=== PATIENT | female | born 1955 | race Caucasian/White ===

== ENCOUNTER → 2019-01-13 13:58 | Emergency (ER) | payer OTHER ==
[~2019-01-13 13:58] MED LIST: Bupivacaine 0.5% PF 10 ML VIAL INJ ONE; Bupivacaine 0.5%* 50 ML VIAL INJ ONE; Lidocaine 1%* 5 ML VIAL INJ ONE; Lidocaine 2.5%/Prilocain 2.5%* 5 GM TUBE TOPICAL ONE; oxyCODONE/Acetamin 5/325 MG* TAB PO ONE
--- NOTE | 2019-01-13 17:14 | ED ---
Upper Extremity Pain - HPI Summary HPI Summary: Patient is a 64-year-old female who presents emergency department for a left wrist injury that occurred just prior to arrival. Patient states she was pulling down rope to close her garage when the rope broke and she fell backwards landing onto her left hand. Denies head injury or any other injuries. Symptoms are mild in severity. Patient denies past medical history. - History of Current Complaint Chief Complaint: EDExtremityUpper Stated Complaint: "I THINK I BROKE MY WRIST" PER PT Time Seen by Provider: 01/13/19 14:27 Hx Obtained From: Patient - Allergies/Home Medications Allergies/Adverse Reactions: Allergies Allergy/AdvReac Type Severity Reaction Status Date / Time aspirin Allergy Swelling Verified 01/13/19 14:25 Penicillins Allergy Swelling Verified 01/13/19 14:25 PMH/Surg Hx/FS Hx/Imm Hx Previously Healthy: Yes Endocrine/Hematology History: Denies: Hx Diabetes Cardiovascular History: Denies: Hx Hypertension, Hx Pacemaker/ICD History: Denies: Hx Renal Disease Sensory History: Denies: Hx Hearing Aid Psychiatric History: Denies: Hx Panic Disorder - Surgical History Surgery Procedure, Year, and Place: TONSILECTOMY - as a child ;. Lt [facility] - NEUROPATHY -1979 ; Infectious Disease History: No Infectious Disease History: Denies: Traveled Outside the [place] in Last 30 Days - Family History Known Family History: Positive: Other - aneurysm (grandmother) - Social History Occupation: Employed Full-time Lives: With Family Alcohol Use: Rare Substance Use Type: Reports: None Smoking Status (MU): Never Smoked Tobacco Review of Systems Positive: Other - left wrist injury Negative: Weakness, Paresthesia, Numbness All Other Systems Reviewed And Are Negative: Yes Physical Exam Triage Information Reviewed: Yes Vital Signs On Initial Exam: Initial Vitals Temp Pulse Resp BP Pulse Ox 98.4 F 75 18 148/96 100 01/13/19 14:13 01/13/19 14:13 01/13/19 14:13 01/13/19 14:13 01/13/19 14:13 Vital Signs Reviewed: Yes Appearance: Positive: Well-Appearing - Pt. sitting on bed in NAD. Skin: Positive: Warm, Dry Head/Face: Positive: Normal Head/Face Inspection Eyes: Positive: Normal, EOMI Neck: Positive: Supple Musculoskeletal: Positive: Other - Mild deformity to left wrist. Good radial pulse. No neurosensory deficits. Diffuse pain to distal forearm. No breaks in the skin. No proximal injuries Neurological: Positive: Normal, CN Intact II-III Psychiatric: Positive: Affect/Mood Appropriate Procedures - Procedure Summary Procedure Summary: Hematoma block performed by Dr. Newby with 5cc of bupivacaine and 5cc lidocaine. Left wrist fracture was reduced using traction-counter traction. Good pre and post reduction radial pulse. Good cap. refill. Sugar tong splint placed. Post reduction xray shows mild improvement of alignment. Pt. tolerated well. Diagnostics - Vital Signs Vital Signs Temp Pulse Resp BP Pulse Ox 01/13/19 16:31 71 18 129/70 97 01/13/19 15:20 20 01/13/19 14:39 22 01/13/19 14:13 98.4 F 75 18 148/96 100 - Laboratory Lab Statement: Any lab studies that have been ordered have been reviewed, and results considered in the medical decision making process. Course/Dx - Course Course Of Treatment: Patient presenting with eyesight left wrist injury. She is given a dose of Percocet. Xray per radiolgoy: REPORT AND IMPRESSION: #. Comminuted intra-articular fracture of the distal radius with approximate 1 cm dorsal. displacement and disproportionate dorsal impaction with resulting dorsal tilt of the. distal radial articular surface. The carpus remains aligned with the distal radioarticular. surface. Associated grossly nondisplaced ulnar styloid avulsion. Surrounding soft tissue. swelling. Case discussed with on-call orthopedics, Dr. Bartlett, who recommends reductoin and outpt. f.u. Hematoma block performed by Dr. Newby. Wrist was reduced as noted above with slight improvement with alignment. Wrist was splinted and placed in sling. Rx for percocet sent to pharm. [employer] reviewed. Pt. to ice and elevate. To call ortho. office tomorrow for a close f.u apt. To return if sxs change or worsen. Pt. understands and agrees with plan. - Diagnoses Differential Diagnosis/HQI/PQRI: Positive: Fracture (Closed), Strain, Sprain Provider Diagnoses: Wrist fracture Discharge - Sign-Out/Discharge Documenting (check all that apply): Patient Departure Patient Received Moderate/Deep Sedation with Procedure: No - Discharge Plan Condition: Improved Disposition: HOME Prescriptions: oxyCODONE/Acetamin 5/325 MG* [Percocet 5/325 TAB*] 1 tab PO Q6H PRN #12 tab MDD 4 PRN Reason: Pain Patient Education Materials: Wrist Fracture in Adults (ED) Referrals: Olivia Warner MD [Primary Care Provider] - Argenis Bartlett MD [Medical Doctor] - Additional Instructions: Call Dr. Bartlett's office tomorrow to schedule a close follow up appointment Keep splint in place Ice and elevate Pain medication as directed Return to ER if symptoms change or worsen - Billing Disposition and Condition Condition: IMPROVED Disposition: Home
[2019-01-13 18:29] VITALS: BP 134/83
== END | disposition home or self-care (01) ==
LOC: ED 13:58
DX: S52.92XA Unspecified fracture of left forearm, initial encounter for closed fracture (principal); W01.0XXA Fall on same level from slipping, tripping and stumbling without subsequent striking against object, initial encounter; Y92.015 Private garage of single-family (private) house as the place of occurrence of the external cause; Z88.0 Allergy status to penicillin
CPT/HCPCS: 25605; 96374; 96375; 99282; A9270-GY

== ENCOUNTER 2019-01-18 11:51 | Day surgery (SDC) | payer OTHER ==
[~2019-01-18 11:51] MED LIST changes: +Buffered Lidocaine 1% SYRIN* 1 ML/SYRINGE INTRADERM ONE; -Bupivacaine 0.5% PF 10 ML VIAL INJ ONE; -Bupivacaine 0.5%* 50 ML VIAL INJ ONE; +Dexamethasone IV* 4 MG/ML 1 ML (4 MG) IV SLOW PU ONE; +Dexamethasone TAB* 4 MG ONE; +Dexamethasone TAB* 4 MG PO ONE; +Famotidine IV* 10 MG/ML 2 ML (20 mg) IV ONE; +Famotidine IV* 10 MG/ML 2 ML (20 mg) ONE; +Lactated Ringers 1000 ML Bag* 1,000 ML IV SCH; -Lidocaine 1%* 5 ML VIAL INJ ONE; -Lidocaine 2.5%/Prilocain 2.5%* 5 GM TUBE TOPICAL ONE; -oxyCODONE/Acetamin 5/325 MG* TAB PO ONE
[2019-01-18] MEDS ORDERED: Clindamycin 900 MG IVPREMIX(* 900 MG/50 ML SDV IV ONE (12:50)
[2019-01-18] MEDS ORDERED: Dexamethasone IV* 4 MG/ML 1 ML (4 MG) ONE ×2 (12:50→13:57)
[2019-01-18] MEDS ORDERED: Ketorolac INJ* 30 MG/ML 1 ML VIAL ONE (13:57)
[2019-01-18] MEDS ORDERED: Ondansetron INJ* 2 MG/ML VIAL ONE (13:57)
[2019-01-18] MEDS ORDERED: Propofol* 10 MG/ML 20 ML BTL ONE (13:57)
[2019-01-18] MEDS ORDERED: fentaNYL* 50 MCG/ML 5 ML VIAL (250 MCG VIAL) ONE (13:57)
[2019-01-18] MEDS ORDERED: Midazolam* 1 MG/ML 5 ML VIAL (5 MG) ONE (13:57)
[2019-01-18] MEDS ORDERED: Bupivacaine 0.5% SDV PF* 30ML VIAL ONE ×2 (13:58→15:18)
[2019-01-18] MEDS ORDERED: Ondansetron INJ* 2 MG/ML VIAL IV PRN (15:55)
[2019-01-18] MEDS ORDERED: fentaNYL* 50 MCG/ML 2 ML VIAL (100 MCG VIAL) IV PRN (15:55)
[2019-01-18] MEDS ORDERED: Scopolamine 1.5 mg* PATCH TRANSDERM PRN (15:55)
[2019-01-18] MEDS ORDERED: oxyCODONE/Acetamin 5/325 MG* TAB PO PRN (15:55)
[2019-01-18] MEDS ORDERED: DiMENhydriNATE IV* 50 MG/ML VIAL IV PUSH PRN (15:55)
[2019-01-18] MEDS ORDERED: HYDROmorphone INJ1* 1 MG/ML SYRINGE IV PRN (15:55)
[2019-01-18] MEDS ORDERED: Naloxone* 0.4 MG/ML 1 ML VIAL IV PRN (15:55)
[2019-01-18] MEDS ORDERED: oxyCODONE/Acetamin 5/325 MG* TAB ONE (16:36)
[2019-01-18 17:01] VITALS: BP 122/88
--- NOTE | 2019-01-19 00:43 | OP ---
DATE OF OPERATION: 01/18/19 [facility] DATE OF : 57 SURGEON: Dr. Bartlett. CONDENSER TESTER: RADHA Adnersen. ANESTHESIA: General. PRE-OP DIAGNOSIS: Left distal radius fracture, comminuted and intraarticular. POST-OP DIAGNOSIS: Left distal radius fracture, comminuted and intraarticular. OPERATIVE PROCEDURE: Open reduction and internal fixation of left distal radius. ESTIMATED BLOOD LOSS: Zero. TOURNIQUET TIME: Approximately 45 minutes. INDICATION FOR PROCEDURE: Sandra is a 64-year-old female who suffered a fracture of her distal radius. Closed reduction was inadequate. She presents for ORIF of the distal radius. DESCRIPTION OF PROCEDURE: The patient was brought to the operating room, was given a general anesthetic, placed in the supine position on the operating table with a tourniquet around her left upper arm. Skin of her right upper extremity was prepped and draped in the usual sterile fashion. The hand and forearm were exsanguinated and the tourniquet elevated to 250 mmHg. A longitudinal incision was made over the FCR tendon. We dissected through the FCR tendon sheath, both superficial and deep, sharply with a knife. The FPL muscle and tendon were retracted, and the pronator quadratus was incised and subperiosteally dissected off of the distal radius. The fracture fragments were reduced with traction and manipulation. There were at least three intraarticular fragments in both the radiocarpal joint and the distal radioulnar joint. These fragments were secured with a Synthes variable angle plate with four distal screws and three proximal screws. The position of the hardware and fracture fragments was checked on the C-arm in the AP and lateral views and found to be satisfactory. The wound was irrigated. The pronator quadratus was repaired over the plate with 2-0 Vicryl suture. The FCR tendon sheath was repaired with 2-0 Vicryl suture and then the skin edges were reapproximated with 4-0 nylon suture. The wound was dressed with Xeroform, 4x4 , Webril, and an Eric wrap with a volar splint. The patient tolerated the procedure well and was brought to the recovery room in good condition. [id number]/[facility] #: [id number] [facility]AD[facility] CAMPUSDinesh
== END 2019-01-18 17:03 | disposition home or self-care (01) ==
LOC: OREAST 11:51
PROVIDERS: ATTEND Orthopaedic Surgery
DX: S52.572A Other intraarticular fracture of lower end of left radius, initial encounter for closed fracture (principal); W19.XXXA Unspecified fall, initial encounter; Y92.9 Unspecified place or not applicable; Z88.0 Allergy status to penicillin; Z88.8 Allergy status to other drugs, medicaments and biological substances; Z87.891 Personal history of nicotine dependence
CPT/HCPCS: 76000; A9270-GY; C1713; C1776; J1100; J1885; J2250; J2405; J2704; J3010; J3490; J8540